=== PATIENT | male | born 1955 ===

== ENCOUNTER 2017-05-06 14:26 | Emergency (ER) | payer OTHER ==
[2017-05-06 15:11] VITALS: BP 131/77; PULSE 89; RESP 16; TEMP 98.5; O2SAT 96
--- NOTE | 2017-05-06 16:48 | RAD ---
HISTORY: cough COMPARISON: None available. TECHNIQUE: Chest PA and lateral FINDINGS: Examination limited by habitus. LUNGS: No focal consolidation. Please note that chest x-ray has limited sensitivity for the detection of pulmonary masses. PLEURA: No significant pleural effusion identified. No definite pneumothorax . CARDIOVASCULAR: Median sternotomy wires. Heart size appears within normal limits. OSSEOUS STRUCTURES: Degenerative changes of the spine. VISUALIZED UPPER ABDOMEN: Unremarkable. OTHER FINDINGS: None. IMPRESSION: No focal consolidation identified.
--- NOTE | 2017-05-06 16:54 | C.PDOC ---
History Of Present Illness 61 year old male presents to the ED for evaluation of cough that is productive of yellow sputum for 3 days. Patient describes his symptoms as "flu-like symptoms" and reports generalized body aches, fever, and headache. Patient denies sore throat, chest pain, shortness of breath, sick contacts, or tobacco use. Time Seen by Provider: 05/06/17 15:41 Chief Complaint (Nursing): Flu-like Symptoms History Per: Patient History/Exam Limitations: no limitations Onset/Duration Of Symptoms: Days (3) Current Symptoms Are (Timing): Still Present Sick Contacts (Context): None Associated Symptoms: Fever, Cough, Sputum (yellow ) Additional History Per: Patient Past Medical History Reviewed: Historical Data, Nursing Documentation, Vital Signs Vital Signs: Last Vital Signs Temp 98.5 F 05/06/17 15:08 Pulse 89 05/06/17 15:08 Resp 16 05/06/17 15:08 BP 131/77 05/06/17 15:08 Pulse Ox 96 05/06/17 16:53 - Medical History PMH: Depression, HTN Surgical History: No Surg Hx Family History: States: Unknown Family Hx - Social History Hx Alcohol Use: No Hx Substance Use: No - Immunization History Hx Influenza Vaccination: No Hx Pneumococcal Vaccination: No Review Of Systems Constitutional: Positive for: Fever ENT: Negative for: Throat Pain Respiratory: Negative for: Cough, Shortness of Breath Musculoskeletal: Positive for: Other (generalized body aches ) Neurological: Positive for: Headache Physical Exam - Physical Exam Appears: Non-toxic, No Acute Distress Skin: Normal Color, Warm, Dry Head: Atraumatic, Normacephalic Eye(s): bilateral: Normal Inspection Ear(s): Bilateral: Normal Nose: Normal, No Discharge Oral Mucosa: Moist Throat: Normal, No Erythema, No Exudate Neck: Supple Chest: Symmetrical, No Deformity, No Tenderness Cardiovascular: Rhythm Regular, No Murmur Respiratory: Normal Breath Sounds, No Rales, No Rhonchi, No Wheezing Extremity: Normal ROM, Capillary Refill (less than 2 seconds ) Neurological/Psych: Oriented x3, Normal Speech, Normal Cognition ED Course And Treatment O2 Sat by Pulse Oximetry: 96 (on RA) Pulse Ox Interpretation: Normal Medical Decision Making Medical Decision Making: Progress: CXR ordered and reviewed. Motrin PO, Tamiflu PO, Tylenol PO administered. CXR preliminary read is negative. On reassessment, patient is resting comfortably and is showing no signs of distress. Patient is stable for discharge with diagnosis of flu-like syndrome. Advised to f/u with PMD within 1-2 days for further evaluation. Disposition Counseled Patient/Family Regarding: Studies Performed, Diagnosis, Need For Followup, Rx Given - Disposition Referrals: Lasha Wong MD [Medical Doctor] - Disposition: HOME/ ROUTINE Disposition Time: 16:51 Condition: STABLE Additional Instructions: follow up with your doctor in 2 days call to make an appointment take medications as prescribed return to ER if symptoms worsens or progress Prescriptions: Albuterol HFA [Ventolin HFA 90 mcg/actuation (8 g)] 2 puff IH [id number] #1 puff Naproxen [Naprosyn] 500 mg PO BID PRN #16 tab PRN Reason: Pain, Moderate (4-7) Oseltamivir Phosphate [Tamiflu] 75 mg PO BID #10 capsule Instructions: Flu Forms: [facility] (Slovenian), Gen Discharge Inst Slovenian Print Language: DIVEHI - Clinical Impression Clinical Impression: Influenza-like illness - Scribe Statement The provider has reviewed the documentation as recorded by the Scribe (Carol Murillo) Provider Attestation: All medical record entries made by the Scribe were at my direction and personally dictated by me. I have reviewed the chart and agree that the record accurately reflects my personal performance of the history, physical exam, medical decision making, and the department course for this patient. I have also personally directed, reviewed, and agree with the discharge instructions and disposition.
== END 2017-05-06 17:05 | disposition home or self-care (01) ==
LOC: C.ER 14:26
DX: J11.1 Influenza due to unidentified influenza virus with other respiratory manifestations (principal)